=== PATIENT | female | born 1990 ===

== ENCOUNTER → 2022-02-03 | Outpatient (CLI) | payer OTHER | END | disposition home or self-care (01) | LOC: RAD 08:59 | DX: R13.10 Dysphagia, unspecified (principal) ==

== ENCOUNTER 2022-02-15 08:59 | Outpatient (CLI) | payer OTHER | END 2022-02-15 09:04 | disposition home or self-care (01) | LOC: TOM 08:59 | DX: Z12.11 Encounter for screening for malignant neoplasm of colon (principal) ==